=== PATIENT | female | born 1950 | race Caucasian/White ===

== ENCOUNTER → 2018-02-01 | Outpatient (CLI) | payer OTHER | LOC: CAT 14:56 | DX: Z13.6 Encounter for screening for cardiovascular disorders (principal); E78.00 Pure hypercholesterolemia, unspecified ==

== ENCOUNTER → 2018-02-25 | Outpatient (CLI) | payer BC, OTHER ==
[~2018-02-25] VITALS: Ht 167.6 cm; Wt 70.3 kg
[~2018-02-25] MED LIST: BIOTIN10 MG PO; DOXYCYCLINE 10100 MG PO; GLUCOSAMINE HC500 MG PO; HYDROCHLOROTH12.5 M1 PO; LIPITOR 20 MG T20 M1 PO; MOBIC15 MG PO; NITROGLYCERIN0.4 MG SUBLING; TOPROL XL100 MG PO; TURMERIC538 MG PO; UBIQUINOL100 MG PO; VITAMIN D2000 UNIT PO; WELLBUTRIN SR150 MG PO; XIIDRA1 EACH OPHTHALMIC; ZETIA10 MG PO
[2018-02-25 09:59] VITALS: BP 147/80
--- NOTE | 2018-02-28 12:31 | CATHLAB ---
[facility] [place] [place] [address] INVASIVE PROCEDURE REPORT Name: NISHIPRABHAKAR F Room #: REG [facility]#: [id number] Admission: 02/25/18 Attend Phys: Iglesia Ng Discharge: Date of : 50 Date of Service: 02/28/18 1231 Report #: [id number] THIS REPORT FOR: //name// APPROVED REPORT Study performed: 02/25/2018 12:09:37 Patient Details Patient Status: Out-Patient Room #: The patient is a 67 year-old female Event Personnel Iglesia Pineda Evaporator Repairer, Fletcher Peralta Mahmood, Amber Monitor, Homer Bui photographer model Performed Art Access - R femoral artery* 14538 Initial Mod Sed Same Phys/QHP Gr5y [id number] Left Heart Cath w/or w/o Coronaries [id number] [facility] Hemostasis with Manual pressure Indication Chest pain Procedure Narrative The Right Groin^ was infiltrated with 1% Lidocaine subcutaneous anesthesia. A PINNACLE 4FR Sheath #[id number] sheath was inserted into the RFA^. Coronary angiography was performed using coronary diagnostic catheters. The right coronary system was accessed and visualized with a JR4 catheter. The left coronary system was accessed and visualized with a JL4 catheter. The left ventricle was accessed and visualized with a ANGLED PIGTAIL catheter. Left ventricular/Aortic Valve gradient assessed via catheter pullback. Hemostasis was obtained with manual pressure following sheath removal without any complications. The patient tolerated the procedure well and there were no complications associated with the procedure. There was no hematoma. Intraoperative Conscious Sedation Sedation start time: 12:16 Case end Time: 12:47 Versed 2 mg Fluoro Time: 2.50 minutes Dose: DAP 2049.00 cGycm2 573 mGy Contrast Type and Amount: Omnipaque 50 ml [facility] [place] [address] INVASIVE PROCEDURE REPORT Name: PRABHAKAR ALMODOVAR Room #: REG [facility]#: [id number] Admission: 02/25/18 Attend Phys: Iglesia Ng Discharge: Date of : 50 Date of Service: 02/28/18 1231 Report #: [id number] Coronary Angiography The patient's coronary anatomy is right dominant. Diagnostic Cath Left Main Normal origin and moderate caliber bifurcates left anterior descending left circumflex free of high-grade disease LAD Moderate caliber type II vessel which courses in the anterior interventricular sulcus giving rise to septal and diagonal branches. His rapidly tapering distal third is noted irregularities but no high-grade lesions Diagonal 1 Small caliber vessel coursing on the anterolateral wall. High-grade disease Diagonal 2 Smaller caliber vessel without significant lesions Circumflex Small caliber nondominant vessel which courses posteriorly giving rise to a lateral wall marginal branch. These branches further fixated into less than half a millimeter diameter vessel with isolated lesions throughout its course. The distal circumflex terminates as a diminutive vessel and the posterior aspect of the left ventricle in the AV groove. Right Coronary Moderate to large caliber vessel with a sanders's crook deformity proximally. In the proximal mid region there is a calcified region which has a 30-40 % narrowing. There is some shadowing noted that may be a linear intraluminal disruption versus decalcification itself but no thrombus or intensive active plaques seen R PDA Moderate to small caliber vessel free of high-grade disease RPLV Color vessel without significant stenosis Ramus Small caliber vessel arising from the left coronary system free of high-grade disease Left Ventriculography Left Ventriculography was not performed. Hemodynamics The aortic pressure is 167/85 mmHg with a mean of 114 mmHg. The left ventricular pressure is 161/11 mmHg with a mean of mmHg. The left ventricular end diastolic pressure is 21 mmHg. Conclusion 1. Coronary artery disease mild 2 vessel nonobstructive 2. Normal hemodynamics Recommendations [facility] [address] [place] [address] INVASIVE PROCEDURE REPORT Name: PRABHAKAR ALMODOVAR Room #: REG [facility]#: [id number] Admission: 02/25/18 Attend Phys: Iglesia Ng Discharge: Date of : 50 Date of Service: 02/28/18 1231 Report #: [id number] Cardiac Risk Reduction Program Medical Therapy <ELECTRONICALLY SIGNED> By: Iglesia Pineda MD 02/28/18 1231 1231 1231 Iglesia Pineda MD /INF
== END | disposition home or self-care (01) ==
LOC: CATH 08:57
DX: I25.10 Atherosclerotic heart disease of native coronary artery without angina pectoris (principal); I10 Essential (primary) hypertension; E78.5 Hyperlipidemia, unspecified; J44.9 Chronic obstructive pulmonary disease, unspecified; Z87.891 Personal history of nicotine dependence; Z82.49 Family history of ischemic heart disease and other diseases of the circulatory system; Z85.828 Personal history of other malignant neoplasm of skin; Z98.890 Other specified postprocedural states; Z96.622 Presence of left artificial elbow joint; Z88.8 Allergy status to other drugs, medicaments and biological substances; Z79.899 Other long term (current) drug therapy